=== PATIENT | male | born 1975 | race Two or more races ===

== ENCOUNTER 2024-06-22 16:04 | Emergency (ER) | payer MEDICAID, SELFPAY ==
[2024-06-22 16:05] VITALS: BMI 31.1
[2024-06-22 16:13] VITALS: BP 166/116; PULSE 93; RESP 20; O2SAT 97
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
[2024-06-22] MEDS: ONDANSETRON INJ 2 MG/ML INJ 2 ML 4 MG IV (16:25)
[2024-06-22] MEDS: DIPHTH,PERTUSS(ACELL),TET VAC 0.5 ML VIAL IMi (16:27)
[2024-06-22] MEDS: MORPHINE SULF INJ 10 MG/ML VIAL 4 MG IVP (16:27)
[2024-06-22 16:30] LABS: Basophils # (Auto) 0.1 Thou/mm3 (0.0-0.2); Basophils % (Auto) 1 % (0-2.5); Eosinophils # (Auto) 0.3 Thou/mm3 (0.0-0.5); Eosinophils % (Auto) 3 % (0-10); Hematocrit 44.8 % (41.0-53.0); Hemoglobin 15.4 g/dL (13.5-16.0); Immature Granulocytes % (Auto) 0 % (0-0); Immature Granulocytes Auto 0.04 Thou/mm3 (0.00-0.00); Lymphocytes # (Auto) 2.8 Thou/mm3 (1.0-4.8); Lymphocytes % (Auto) 23 % (10-50); Mean Corpuscular HGB Conc 34.4 g/dl (31.0-37.0); Mean Corpuscular Hemoglobin 30.1 pg (25.0-35.0); Mean Corpuscular Volume 88 fL (80-100); Monocytes # (Auto) 0.7 Thou/mm3 (0.0-0.8); Monocytes % (Auto) 6 % (0-12); Neutrophils % (Auto) 67 % (37-80); Nucleated Red Blood Cell % 0 /100 WBC (0); Platelet Count 285 Thou/mm3 (140-440); RDW Standard Deviation 40.6 fL (35.1-43.9); Red Blood Count 5.12 Miln/mm3 (4.50-5.90); White Blood Count 11.9 Thou/mm3 (3.8-10.6)
--- NOTE | 2024-06-22 16:36 | PC.NURSE ---
[facility] CALLED TO REQUEST A TRANSFER, TALKED TO RICARDA FROM TRANSFER CENTER, ALL PAPER WORK FAXED AND REPORT GIVEN BY TIMOTEO THE DEE
[2024-06-22] MEDS: HYDROmorphone INJ 2 MG/ML VIAL 1 MG IVP ×4 (16:41→21:19)
[2024-06-22 16:58] LABS: Alanine Aminotransferase 19 U/L (10-49); Albumin, Serum 4.9 gm/dL (3.5-5.0); Albumin/Globulin Ratio 2.1 (1.2-2.2); Alkaline Phosphatase 82 U/L (46-116); Anion Gap 9 (7-16); Aspartate Amino Transferase 21 U/L (0-34); BUN/Creatinine Ratio 15 Ratio (12-20); Bilirubin,Total 1.4 mg/dL (0.3-1.2); Blood Urea Nitrogen 16 mg/dL (9-23); Calcium 9.2 mg/dL (8.3-10.6); Calcium (Corrected) 9.2 mg/dL (8.5-10.1); Carbon Dioxide 26.5 mMol/L (20.0-31.0); Chloride 102 mMol/L (98-107); Creatinine (Component) 1.1 mg/dL (0.6-1.3); Estimated Creatinine Clearance 101.4 mL/min (>60); Globulin 2.3 gm/dL (2.3-3.5); Glucose 123 mg/dL (74-106); Osmolality,Calculated 276 (275-295); Potassium 3.5 mMol/L (3.4-5.1); Sodium 137 mMol/L (136-145); Total Protein 7.2 gm/dL (5.7-8.2); eGFR > 60 See Note
--- NOTE | 2024-06-22 17:00 | PC.NURSE ---
GOODEN WERE COVERED BY TOOTHPASTE UPON ARRIVAL TO ED, AREA CLEANED WITH STERILE WATER AND STERILE CLOTHS, PATIENT TOLERATED WELL. 80% OF THE TOOTHPASTE REMOVED, PROVIDER MADE AWARE.
[2024-06-22 18:00] VITALS: BP 144/99; PULSE 71; RESP 19; TEMP 36.5; O2SAT 97
--- NOTE | 2024-06-22 18:26 | PC.NURSE ---
CALLED RECEIVED FROM RICARDA AT [facility]SFER [facility]. PT ACCEPTED TO [facility] ED TO ED. CALL NURSE REPORT TO [phone]
[2024-06-22] MEDS: ceFAZolin/D5W 2 GM IV 2 GM/100 ML BAG IV (18:44)
[2024-06-22 19:00] VITALS: BP 139/82; PULSE 77; RESP 16; O2SAT 98
--- NOTE | 2024-06-22 19:16 | PC.NURSE ---
ASSUME CARE OF PT AT THIS TIME. INTRODUCED SELF TO PT. PT CURRENTLY SLEEPING IN [facility], APPEARS TO BE COMFORTABLE. RESPIRATION ARE EVEN AND UNLABORED. NAD NOTED AT THIS TIME. UPDATED PT ON PLAN OF CARE. PT AGREED TO CONCERT FOR TRANSPORT TO [facility]. WITNESS WITH CHARGE NURSE ESTEFANÍA. CALL LIGHT WITHIN REACH.
[2024-06-22 20:08] VITALS: BP 161/99; PULSE 68; RESP 14; TEMP 36.5; O2SAT 97
--- NOTE | 2024-06-22 21:09 | PC.NURSE ---
Xeroform and gauze pad applied to RL ARM and Rhand.
--- NOTE | 2024-06-22 21:22 | PC.NURSE ---
REPORT GIVEN MARK AT [facility]. ALL QUESTIONS ANSWERED. [facility] IS HERE TO TRANSFER PT THEIR FACILITY.
[2024-06-22 21:26] VITALS: BP 157/64; PULSE 61; RESP 18; TEMP 36.6; O2SAT 97
== END 2024-06-22 21:26 | disposition short-term general hospital (02) ==
PROVIDERS: Nurse Practitioner Family; Emergency Provider Emergency Medicine; PCP Physician Assistant
DX: T21.22XA Burn of second degree of abdominal wall, initial encounter (principal); T22.211A Burn of second degree of right forearm, initial encounter; T23.201A Burn of second degree of right hand, unspecified site, initial encounter; T31.22 Burns involving 20-29% of body surface with 20-29% third degree burns; X08.8XXA Exposure to other specified smoke, fire and flames, initial encounter; Y93.G2 Activity, grilling and smoking food; Z23 Encounter for immunization
CPT/HCPCS: 36415; 80053; 85025; 90471; 90715; 96365; 96366; 96375; 96376; 99285; J0689; J2270; J2405; J3490; J0690

== ENCOUNTER 2025-06-03 17:11 | Emergency (ER) | payer MEDICAID, SELFPAY ==
[2025-06-03 17:15] VITALS: BP 186/115; BP 191/124; PULSE 90; RESP 18; TEMP 36.9; O2SAT 99
--- NOTE | 2025-06-03 17:35 | XR_ITS ---
EXAMINATION: AP chest single view TECHNIQUE: AP portable upright chest single view Date and time: June 03, 2025, 1802 hours INDICATIONS: Chest pain today. FINDINGS: Poor inspiratory effort Mild vascular congestion. Normal heart size Osseous structures are intact IMPRESSION: Poor inspiratory effort chest x-ray, recommend repeat better inspiratory effort chest
--- NOTE | 2025-06-03 17:35 | XR_ITS ---
Examination: CT brain head without contrast. 2-D sagittal coronal reconstructions Date and time of exam: June 03, 2025, 1815 hours INDICATIONS: Syncopal episode today CTDI: vol (mGy): 11.5 DLP: (mGycm): 1975 Technique: Multiple CT axial sections of the brain have been obtained, 5 mm slice thickness. Contrast has not been administered. 2-D sagittal, coronal reconstructions have been obtained Low dose protocols were performed. One or more of the following dose reduction techniques were used; automated exposure control, adjustment of the mA and/or KV according to patient size, use of iterative reconstruction technique. Findings: No significant ventricular enlargement. Significant chronic ethmoid sinusitis Intra-axial or extra-axial hemorrhage density is not seen. No mass effect or midline shift Basal cisterns are not remarkable. Fourth ventricle is midline. Cranial vault intact. Impression: Negative for acute hemorrhage, mass effect or midline shift Advise clinical correlation and follow-up accordingly
--- NOTE | 2025-06-03 17:35 | EKG_ITS ---
[facility] Test Date: 2025-06-03 Pat Name: HANK VO Department: Room: - Gender: Male Research Consultant: : 1975 Requested By: Avel Reich Order Number: [id number] Reading MD: Avel Reich Measurements Intervals [place] Rate: 94 P: 59 DE: 160 QRS: 53 QRSD: 102 T: 31 QT: 337 QTc: 422 Interpretive Statements SINUS RHYTHM No previous ECG available for comparison /store/S0/[id number]/ecg/[id number].pdf
--- NOTE | 2025-06-03 17:36 | PD.EDMEDCL ---
ED Medical Clearance RME/HPI General Chief complaint: General Adult/Misc Complain Stated complaint: RESIDENTIAL CLEARANCE/HBP Time Seen by Provider: 06/03/25 17:31 Arrival date/time: 06/03/25 17:11 50-year-old male patient with significant history of hypertension, not taking his blood pressure medication today, was brought in by EMS for medical clearance. Apparently while patient in the [facility], patient developed near syncope, and when the EMS arrived patient blood pressure was noted to be above 200 systolic. Currently patient is complaining of facial numbness bilateral side, headache, left-sided chest pain, severity moderate. Patient denies any vomiting denies any slurring of speech denies any other complaint. No medication was taken prior to ER visit. Related Information Home Medications ?Medication ?Instructions ?Recorded ?Confirmed lisinopril 10 mg tablet 10 mg PO 1XD 06/22/24 06/22/24 Allergies Allergy/AdvReac Type Severity Reaction Status Date / Time No Known Allergies Allergy Mild Uncoded 09/11/07 14:53 Review of Systems Review of Systems Narrative Review of Systems: Review of system reviewed and within normal limits except mentioned in HPI ED Exam Narrative Physical exam: VITAL SIGNS: Reviewed. GENERAL APPEARANCE: Alert and interactive, follows commands, no acute distress, HEAD AND FACE: Non-traumatic. ENT: PERRL, pink conjunctivitis, eyelid no trauma, Mucous membrane moist. NECK: Supple, nontender, no nuchal rigidity. CHEST: No tenderness, no crepitus, no paradoxical movement, no retractions. LUNGS: Clear, well ventilated, symmetric, no rales, no wheezing, no ronchi, no stridor, good breath sounds bilaterally. HEART: Regular rate, regular rhythm, no murmur, no gallops. ABDOMEN: Soft, positive bowel sounds, nondistended, no guarding, nontender, no rebound, no masses, RECTAL: Deferred. GENITAL: Deferred. NEUROLOGICAL: Gross motor function intact sensory function intact, Appropriate for age. MUSCULOSKELETAL: low back nontender, full range of motion. EXTREMITIES: Nontender, full range of motion. SKIN: Color pink, dry, no rash, no lacerations, no abrasions, no contusions. LYMPHATICS: Deferred. Course Quality Measures none Orders Category Date Time Status EKG (ED ONLY) *Do not use* NOW Care 06/03/25 17:[address] head/brain wo con Stat Exams 06/03/25 17:35 Completed EKG (ED Only) Stat Exams 06/03/25 17:35 Draft XR chest 1V Stat Exams 06/03/25 17:35 Completed CBC Stat Lab 06/03/25 17:51 Completed Comprehensive Metabolic Panel Stat Lab 06/03/25 17:51 Completed Partial Thromboplastin Time Stat Lab 06/03/25 17:51 Completed Troponin I Stat Lab 06/03/25 17:51 Completed hydrALAZINE HCL [Apresoline] Med 06/03/25 17:38 Discontinued 50 mg PO X1 ONE Vital Signs Vital signs: Vital Signs Temperature 98.5 F 06/03/25 17:15 Pulse Rate 90 06/03/25 17:15 Respiratory Rate 18 06/03/25 17:15 Blood Pressure 191/124 H 06/03/25 17:15 Pulse Oximetry (%) 99 06/03/25 17:15 Oxygen Delivery Method Room Air 06/03/25 17:15 Medical Clearance MDM Narrative MDM Narrative:: 06/03/25 17:11 50-year-old male patient with significant history of hypertension, not taking his blood pressure medication today, was brought in by EMS for medical clearance. Apparently while patient in the [facility], patient developed near syncope, and when the EMS arrived patient blood pressure was noted to be above 200 systolic. Currently patient is complaining of facial numbness bilateral side, headache, left-sided chest pain, severity moderate. Patient denies any vomiting denies any slurring of speech denies any other complaint. No medication was taken prior to ER visit. EKG shows sinus rhythm normal sinus rhythm, ventricular rate of 94 bpm, no ST segment elevation depression noted. Patient's workup all came back normal. Including CT scan of the head troponin is normal. Patient received hydralazine, and blood pressure was noted to be 138/84 prior to discharge. Patient is medically cleared for incarceration. Patient data External records reviewed:: None Clinical information provided by:: patient and law enforcement Social determinants that could affect healthcare access:: none Patient has the following chronic illnesses:: Hypertension How is presenting disease/condition affected by chronic disease/condition?: caused by Evaluation data The following diagnostics were reviewed and interpreted by me:: lab results, radiology exam(s) and EKG tracing(s) Lab and/or radiology exams considered but not ordered:: None Interpretation Summary: See MDM Medications / Prescriptions Medications or Prescriptions considered but not ordered:: None Medication administrations:: Medication Administration History Discontinued Medications Hydralazine HCl (Hydralazine Hcl 25 Mg Tablet) 50 mg PO X1 ONE Stop: 06/03/25 17:39 Last Admin: 06/03/25 17:48 Dose: 50 mg Documented By: DEDE Hydralazine Consultations Consultation(s) initiated? (list below): No Diagnosis Medical Clearance Differential Diagnosis: other (Medical clearance, hypertension, near-syncope chest pain) Most likely diagnosis given after review of the tests above:: Medical clearance, near-syncope, hypertension Admission Indicated Admission indicated?: not indicated Admission Request Was there a request for admission?: No Disposition Plan Disposition Plan: Discharge Discharge Attestation Discharge Attestation: Patient condition: Stable Discharge Plan Plan Patient Disposition: Senior Care/Court/Law Discharge Disposition comment: stable Prescriptions/Referrals Prescriptions/Med Rec: No Action lisinopril 10 mg Tablet 10 mg PO 1XD Referrals: No Primary/Family,Physician [Primary Care Provider] - In 1 week Problem List Clinical Impression: Medical clearance for incarceration, Headache, Syncope Patient/Caregiver Discharge Instructions Discharge Activity: activity as tolerated Education Materials: Understanding Vasovagal Syncope Additional Instructions: Thank you for the opportunity for serving you today. You are stable for discharged . You are advised to: Follow-up with your PCP in 1 to 2 days once you get out of [facility] Return to ED for worsening of symptoms Take your blood pressure medication as instructed by your PCP Print Language: Gabonese Stand Alone Forms: Olga Award Info., Patient Portal Info Letter HIWOT/ALAN Supervising Physician HENRY Supervising Physician: MD Vanessa
[2025-06-03 17:37] VITALS: PULSE 97
[2025-06-03 17:48] VITALS: BP 173/123; PULSE 92
[2025-06-03 17:57] LABS: Basophils # (Auto) 0.0 Thou/mm3 (0.0-0.2); Basophils % (Auto) 0 % (0-2.5); Eosinophils # (Auto) 0.1 Thou/mm3 (0.0-0.5); Eosinophils % (Auto) 1 % (0-10); Hematocrit 41.8 % (41.0-53.0); Hemoglobin 14.0 g/dL (13.5-16.0); Immature Granulocytes Auto 0.05 Thou/mm3 (0.00-0.00); Lymphocytes # (Auto) 0.9 Thou/mm3 (1.0-4.8); Lymphocytes % (Auto) 8 % (10-50); Mean Corpuscular HGB Conc 33.5 g/dl (31.0-37.0); Mean Corpuscular Hemoglobin 30.4 pg (25.0-35.0); Mean Corpuscular Volume 91 fL (80-100); Monocytes # (Auto) 0.6 Thou/mm3 (0.0-0.8); Monocytes % (Auto) 5 % (0-12); Neutrophils # (Auto) 9.3 Thou/mm3 (1.8-7.7); Neutrophils % (Auto) 85 % (37-80); Nucleated Red Blood Cell # 0.00 Thou/mm3 (0.00-0.00); Nucleated Red Blood Cell % 0 /100 WBC (0); Platelet Count 216 Thou/mm3 (140-440); RDW Standard Deviation 42.6 fL (35.1-43.9); Red Blood Count 4.61 Miln/mm3 (4.50-5.90); White Blood Count 10.9 Thou/mm3 (3.8-10.6)
[2025-06-03 18:11] LABS: Partial Thromboplastin Time 23.6 Seconds (22.0-36.0)
[2025-06-03 18:33] LABS: Alanine Aminotransferase 24 U/L (10-49); Albumin, Serum 4.3 gm/dL (3.5-5.0); Albumin/Globulin Ratio 2.0 (1.2-2.2); Alkaline Phosphatase 73 U/L (46-116); Anion Gap 8 (7-16); Aspartate Amino Transferase 22 U/L (0-34); BUN/Creatinine Ratio 14 Ratio (12-20); Bilirubin,Total 0.8 mg/dL (0.3-1.2); Blood Urea Nitrogen 15 mg/dL (9-23); Calcium 9.0 mg/dL (8.3-10.6); Calcium (Corrected) 9.0 mg/dL (8.5-10.1); Carbon Dioxide 30.4 mMol/L (20.0-31.0); Chloride 108 mMol/L (98-107); Creatinine (Component) 1.1 mg/dL (0.6-1.3); Globulin 2.1 gm/dL (2.3-3.5); Glucose 109 mg/dL (74-106); Osmolality,Calculated 292 (275-295); Potassium 3.8 mMol/L (3.4-5.1); Sodium 146 mMol/L (136-145); Total Protein 6.4 gm/dL (5.7-8.2); Troponin I 0.025 ng/mL (0.0-0.045); eGFR > 60 See Note
[2025-06-03 19:24] VITALS: BP 138/85; PULSE 85; RESP 14; O2SAT 99
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
[2025-06-03] MEDS: KETOROLAC INJ 30 MG/ML VIAL IM (19:44)
[2025-06-03 19:50] VITALS: BP 138/85; PULSE 85; RESP 14; TEMP 37; O2SAT 99
== END 2025-06-03 19:51 ==
PROVIDERS: Nurse Practitioner Family; Emergency Provider Family Medicine
DX: Z02.89 Encounter for other administrative examinations (principal); I10 Essential (primary) hypertension; R55 Syncope and collapse; R51.9 Headache, unspecified
CPT/HCPCS: 36415; 70450; 71045; 80053; 84484; 85025; 85730; 93005; 96372; 99284; J1885; A9270